=== PATIENT | female | born 1950 | race Caucasian/White ===

== ENCOUNTER → 2017-03-22 | Outpatient (CLI) | payer MEDICARE ==
--- NOTE | 2017-03-22 17:23 | KCIC ---
Bilateral digital screening mammograms with CAD: HISTORY Routine screening. COMPARISON Comparison is made to previous studies dated back to 02/24/2014. FINDINGS Breast density category B. The skin and nipples show no abnormalities. No abnormal lymph nodes are seen in the axilla. The breast parenchyma shows scattered fibroglandular density. There are patchy asymmetries which are unchanged. There are no new dominant masses, suspicious calcifications or architectural distortions. IMPRESSION No evidence of malignancy. Recommend routine annual mammographic screening. This study was interpreted with the benefit of Computerized Aided Detection (CAD). Mammography is not 100% sensitive in detecting breast cancer. Therefore, a self breast exam and a clinical breast exam are very important. A negative mammogram does not negate a clinically suspicious finding and should not result in a delay in biopsying a clinically suspicious abnormality. BI-RADS category 2: Benign. This patient's information has been entered into a reminder system for the patient to be notified with the results of this examination and a target date for her next mammograms. Electronically signed by: Jacklyn Pride MD (March 22, 2017 17:21:46)
== END | disposition home or self-care (01) ==
LOC: KCIC MAMMO 12:07
PROVIDERS: ATTEND Obstetrics & Gynecology
DX: Z12.31 Encounter for screening mammogram for malignant neoplasm of breast (principal)
CPT/HCPCS: G0202; 77067

== ENCOUNTER → 2017-12-22 | Outpatient (CLI) | payer MEDICARE ==
[2017-12-22] MEDS: IOHEXOL 300 MG/ML 100ML VIAL. IV ×2 (10:27)
[2017-12-22] MEDS: IOHEXOL 240 MG/ML 50ML VIAL. PO ×2 (10:27)
[2017-12-22 10:31] LABS: ISTAT CREATININE 1.2 mg/dL (0.6-1.1)
== END | disposition home or self-care (01) ==
LOC: KCIC CT 08:58
DX: M43.16 Spondylolisthesis, lumbar region (principal); M51.36 Other intervertebral disc degeneration, lumbar region
CPT/HCPCS: 74177; 82565; Q9966; Q9967

== ENCOUNTER → 2018-02-08 | Outpatient (CLI) | payer MEDICARE | END | disposition home or self-care (01) | LOC: KCIC MRI 14:18 | DX: M51.34 Other intervertebral disc degeneration, thoracic region (principal); M48.061 Spinal stenosis, lumbar region without neurogenic claudication; M51.16 Intervertebral disc disorders with radiculopathy, lumbar region; M47.896 Other spondylosis, lumbar region; M25.78 Osteophyte, vertebrae; M50.30 Other cervical disc degeneration, unspecified cervical region | CPT/HCPCS: 72146; 72148 ==

== ENCOUNTER → 2018-03-23 | Outpatient (CLI) | payer MEDICARE | END | disposition home or self-care (01) | LOC: KCIC MAMMO 08:33 | DX: Z12.31 Encounter for screening mammogram for malignant neoplasm of breast (principal); R92.1 Mammographic calcification found on diagnostic imaging of breast | CPT/HCPCS: 77063; 77067 ==

== ENCOUNTER → 2019-03-28 | Outpatient (CLI) | payer MEDICARE ==
[~2019-03-28] MED LIST: METF500T16 PO; SIMV10TA3 PO
--- NOTE | 2019-03-28 13:26 | KCIC ---
Bilateral digital screening mammograms with 3-D tomosynthesis: Reason for examination: Routine screening. Comparison is made to previous studies dated back to 02/27/2015. Bilateral mammograms in CC and oblique projections were obtained with 2-D imaging and 3-D tomosynthesis imaging on a Siemens Inspiration unit and reviewed on the workstation. Interpretation was made with the benefit of CAD. The skin and nipples show no abnormalities. No abnormal axillary lymph nodes are seen. The breast parenchyma shows scattered fatty and fibroglandular density. (Breast density: Category B.) There continues to be a small subtle nodular parenchymal density containing faint calcifications in the lower inner quadrant of the left breast which is unchanged. There are no new dominant masses, suspicious calcifications or architectural distortion. Impression: No evidence of malignancy. Recommend routine screening. BI-RAD Category 2: Benign. "Our facility is accredited by the [employer] Mammography Program." This patient's information has been entered into a reminder system for the patient to be notified with the results of her examination and a target date for the next mammogram. Electronically signed by: Nini Pride MD (03/28/2019 1:23 PM) [id number]
== END ==
LOC: KCIC MAMMO 11:57
PROVIDERS: ATTEND Obstetrics & Gynecology
DX: Z12.31 Encounter for screening mammogram for malignant neoplasm of breast (principal); N64.89 Other specified disorders of breast
CPT/HCPCS: 77063; 77067

== ENCOUNTER → 2019-07-11 | Outpatient (CLI) | payer MEDICARE ==
--- NOTE | 2019-07-11 10:05 | KCIC ---
LUMBAR SPINE WO CONTRAST History: Low back pain. Bilateral lower extremity radiculopathy. Technique: Multiplanar, multi sequential MR imaging was performed of the lumbar spine. Comparison: February 08, 2018 Findings: Increased degenerative endplate edema L5-S1. No pathologic marrow replacing process. Grade 1 anterolisthesis L4 on L5, unchanged. Minimal retrolisthesis L3 on L4, unchanged. Normal vertebral body height. No fracture. Sacral Tarlov cyst. Conus terminates at the normal location. No evidence of nerve root clumping. L1-L2: Small posterior disc bulge. Mild facet arthropathy. No canal narrowing. Mild right neuroforaminal narrowing. No left neural foraminal narrowing. L2-L3: Small posterior disc bulge. Moderate facet arthropathy. Left subarticular recess narrowing, unchanged. No canal narrowing. Moderate left and mild right neuroforaminal narrowing. L3-L4: Broad-based posterior disc bulge. Advanced facet arthropathy. Bilateral subarticular recess narrowing. Mild canal narrowing. Moderate left and mild right neuroforaminal narrowing. L4-L5: Anterolisthesis. Advanced facet arthropathy. Severe canal narrowing with nerve root compression. Mild left and moderate to severe right L5-S1: Broad-based posterior disc bulge. Advanced facet arthropathy. Bilateral subarticular recess narrowing with abutment of the descending S1 nerve roots. No canal narrowing. And moderate to severe bilateral neural foraminal narrowing. When compared the prior examination the degenerative findings and narrowing are similar. Impression: 1. Advanced multilevel lumbar spondylosis with increased degenerative endplate edema L5-S1. 2. L4-L5 grade 1 anterolisthesis advanced facet arthropathy contributing to severe canal narrowing, unchanged. 3. Multilevel neural foraminal narrowing most prominent L4-L5 and L5-S1, unchanged. Electronically signed by: Milton Estrada DO (07/11/2019 10:02 AM) [facility]
== END | disposition home or self-care (01) ==
LOC: KCIC MRI 08:27
PROVIDERS: ATTEND Internal Medicine
DX: M47.896 Other spondylosis, lumbar region (principal); M12.88 Other specific arthropathies, not elsewhere classified, other specified site; M48.061 Spinal stenosis, lumbar region without neurogenic claudication; M48.07 Spinal stenosis, lumbosacral region
CPT/HCPCS: 72148

== ENCOUNTER → 2019-08-09 | Outpatient (CLI) | payer MEDICARE ==
[~2019-08-09] MED LIST changes: +CALC625T12 PO; +CICL15CR2 TP; +CRESTOR20 MG PO; +IBUP-1027 PO; +LISI-338 PO; +LORA0.5T96 PO; +MELA3TAB56 PO; +SIMV10TA15 PO; -SIMV10TA3 PO
--- NOTE | 2019-08-09 13:43 | KCIC ---
EXAM: Lumbar spine, 3 views. HISTORY: Pain. COMPARISON: 07/11/2019 FINDINGS: Lateral neutral, flexion and extension views of the lumbar spine are obtained. There is degenerative endplate remodeling with disc space narrowing and osteophytosis primarily at L1-L2 and L2-L3. There is facet arthropathy predominantly the lower lumbar levels. There is grade 1 anterolisthesis of L4 and L5 with flexion, measuring 6 mm. There is 3 mm retrolisthesis of L3 on L4 with flexion. This does not significantly change with extension. There is a hip arthroplasty. IMPRESSION: 1. Grade 1 anterolisthesis of L4 and L5 and slight listhesis of L3 on L4 on flexion and extension. 2. Multilevel degenerative change, primarily at L1-L2, L2-L3 and L5-S1. Electronically signed by: Tamara Ngo MD (08/09/2019 1:40 PM) [facility]
== END | disposition home or self-care (01) ==
LOC: KCIC 09:35
PROVIDERS: ATTEND Neurological Surgery
DX: M47.816 Spondylosis without myelopathy or radiculopathy, lumbar region (principal); M47.817 Spondylosis without myelopathy or radiculopathy, lumbosacral region; M12.88 Other specific arthropathies, not elsewhere classified, other specified site
CPT/HCPCS: 72100

== ENCOUNTER → 2019-08-22 | Outpatient (CLI) | payer MEDICARE ==
[~2019-08-22] MED LIST changes: +IOHEXOL 180 MG/ML 10 ML VIAL. ONE; -SIMV10TA15 PO; +SIMV10TA3 PO; +methylPREDNISolone ACETATE 40 MG/ML VIAL. ONE; +methylPREDNISolone ACETATE 80 MG/ML VIAL. ONE
--- NOTE | 2019-08-22 20:50 | PAIN ---
DATE OF SERVICE: 08/22/2019 INITIAL CONSULTATION FOR PAIN CLINIC CHIEF COMPLAINT: Low back and bilateral lower extremity pain. HISTORY OF PRESENT ILLNESS: This is a 68-year-old female who presents with history of pain in the low back, bilateral lower extremities, mostly in the posterior gluteus, posterior thigh and posterior calf bilaterally for about the past 2 years. The patient reports that it is beginning to affect her daily activities and she sought some relief for it. The patient has seen her neurosurgeon who is not recommending any surgical intervention at this time and to try conservative therapy, the patient is doing physical therapy and has done it since 2018 and still doing the exercises and stretches at home. The patient reports she has tried ibuprofen, which does help decrease the pain, but only about 40%. The patient reports the pain is worse with walking, standing, changing positions, getting up from a seated position. The patient reports it does not awaken her from sleep at night, better with sitting or lying down. It does not affect her bowel or bladder control, but does affect her ability to walk with significant fatigability in the bilateral lower extremities. Also driving a car for prolonged period, her right leg becomes ____ and more fatigued. The patient reports the pain is constant, sharp, stabbing across the back radiating and shooting into the posterior gluteus, posterior thighs, worse with activity. The patient rates her disability rating from 0-10, 10 being the worst, is a 6 with family home responsibilities, 8 with recreation, 9 with social activity and 0 with self-care and life support activities. The patient did have MRI scan of the lumbar spine showing some significant narrowing at the L5-S1 as well as the L4-L5 distribution with severe canal narrowing and nerve root compression. Mild left and [id number] right, L5-S1 shows advanced facet arthropathy, bilateral subarticular recess narrowing and abutment of the descending S1 nerve roots with no canal narrowing and [id number] bilateral neural foraminal narrowing. The patient reports no complete loss of function, but significant fatigability in the lower extremities with activity. PAST MEDICAL HISTORY: Significant for type 2 diabetes, hypertension and arthritis. PREVIOUS SURGERY: Include tonsillectomy, abdominal laparoscopy, appendectomy, tubal ligation, bilateral bunionectomy, carpal tunnel repair and cataract extractions. CURRENT MEDICATIONS: Include metformin, calcium, melatonin, Crestor, ibuprofen, Ativan, lisinopril and ciclopirox cream. ALLERGIES: THE PATIENT IS ALLERGIC TO PENICILLIN AND CODEINE. FAMILY HISTORY: Significant for colon cancer and diabetes. SOCIAL HISTORY: The patient does not drink alcohol, but just rarely. Does not smoke. Denies any illegal, illicit or recreational drugs. She is , lives with her spouse, lives locally in [place], [place]. Reports she is currently retired. REVIEW OF SYSTEMS: The patient's review of systems is positive for those items mentioned in history of present illness. All systems reviewed and otherwise negative. It is complete, full and well documented on the patient's chart. PHYSICAL EXAMINATION: VITAL SIGNS: The patient's blood pressure is 142/74, pulse is 73, respirations 18, temperature 98.0 degrees Fahrenheit, height is 5 feet 5 inches, weighs 135. GENERAL: The patient is awake, alert, oriented, appropriate, very pleasant demeanor. HEENT: Shows normocephalic, atraumatic. Extraocular movements are intact and symmetrical. Oral cavity: Mucous membranes moist and pink. Dentition is intact. NECK: Shows anterior throat supple without palpable lymphadenopathy noted. Swallow reflex symmetrical. CHEST: Shows normal on inspection. Breath sounds clear to auscultation bilaterally. HEART: Shows S1, S2 clear. No murmurs auscultated. ABDOMEN: Soft, nontender, nondistended. No palpable organomegaly is noted. No rebound or guarding demonstrated. BACK: Shows spine grossly in the midline. Normal-appearing thoracic kyphosis and minor flattening of lumbar lordotic curvature. Lumbar paraspinous muscle shows symmetrical on inspection and palpation shows some [id number] tenderness throughout the upper, middle and lower distribution of paraspinous muscles, but is symmetrical without evidence of atrophy or hypertrophy. The patient shows no tenderness with palpation over the spinous processes, sacrum or sacroiliac regions. The patient has good rotational motion of lumbar spine, both laterally greater than 10 degrees right and left as well as extension greater than 10 degrees, forward flexion 45 degrees without significant discomfort. EXTREMITIES: The patient's lower extremities show deep tendon reflexes at 2+ in the patellar, 1+ tendo-calcaneus tendons. Motor exam is strong with 5/5 dorsiflexion, extension, quadriceps and hamstring flexion and symmetrical without exacerbating the pain with these maneuvers. The patient's lower extremities are warm and dry to touch, equal in color and appearance. Straight leg raise noted to be negative bilaterally. Gaenslen's and Nguyễn's maneuvers are negative bilaterally as well. Peripheral pulses are 1+ posterior tibia. No peripheral edema is noted bilaterally. The patient is able to stand, stand on her toes without significant difficulty or loss of balance, walks with a normal appearing gait for short distance in the office, not using any assistive devices to ambulate. SKIN: Shows warm and dry, good turgor. No edema. No sores, rashes or bruising. IMPRESSION: 1. This is a 68-year-old female with a 2-year history of increasing pain, low back, bilateral lower extremities in a radicular fashion. 2. MRI scan of lumbar spine as noted. 3. Type 2 diabetes. 4. Hypertension. 5. Arthritis. PLAN: Options were discussed with the patient including conservative medical management, physical therapies and interventional techniques. She is doing physical therapy exercises already. She would like to pursue interventional techniques. We discussed a lumbar epidural steroid injection using description as well as anatomical models to describe the procedure. Risks were then discussed including, but not limited to bleeding, infection, possibility of epidural hematoma, subsequent neurological compromise, dural puncture, headaches, spinal cord and/or nerve damage, side effects of steroid medication and poor results regarding pain control. The patient understands and wished to proceed. The patient will return to the clinic in approximately 2 weeks for followup. She was counseled as to return appointment, activity level and side effects to be aware of. DIAGNOSES: Lumbar radiculopathy with lumbar degenerative disk disease, lumbar spinal stenosis and spondylosis. PROCEDURE: Lumbar epidural steroid injection, translaminar approach L5-S1 level using C-arm fluoroscopic guidance under sterile prep and drape using local anesthetic. MEDICATION INJECTED: The patient received a total of 120 mg Depo-Medrol plus 10 mL of preservative-free normal saline and 2 mL of contrast. CONDITION AT DISCHARGE: Stable. The patient tolerated procedure well, had no complications. RUKHSANA COLIN MD DR: TYRONE/farzad JOB#: [id number] / [id number]
== END ==
LOC: PNCL 09:21
PROVIDERS: ATTEND Anesthesiology
DX: M51.16 Intervertebral disc disorders with radiculopathy, lumbar region (principal); M47.816 Spondylosis without myelopathy or radiculopathy, lumbar region; E11.9 Type 2 diabetes mellitus without complications; I10 Essential (primary) hypertension; Z87.39 Personal history of other diseases of the musculoskeletal system and connective tissue; Z98.890 Other specified postprocedural states; Z98.51 Tubal ligation status; Z98.42 Cataract extraction status, left eye; Z98.41 Cataract extraction status, right eye; Z88.5 Allergy status to narcotic agent; Z88.0 Allergy status to penicillin; Z96.1 Presence of intraocular lens; Z79.84 Long term (current) use of oral hypoglycemic drugs
CPT/HCPCS: 62323; J1030; J1040; Q9965

== ENCOUNTER → 2019-09-05 | Outpatient (CLI) | payer MEDICARE ==
[~2019-09-05] MED LIST changes: +SIMV10TA15 PO; -SIMV10TA3 PO
--- NOTE | 2019-09-05 10:59 | PAIN ---
DATE OF SERVICE: 09/05/2019 PROGRESS NOTE FOR PAIN CLINIC DIAGNOSIS: Lumbar radiculopathy with lumbar degenerative disk disease and lumbar spondylosis. HISTORY OF PRESENT ILLNESS: The patient is a 69-year-old female who returns for followup status post lumbar epidural steroid injection x 1. The patient reports 95% improvement in the low back and bilateral lower extremity pain. The patient reports some minor pain in the right side of the low back and hip, but only minimal with walking, although it is becoming more noticeable over the past 2-3 days. The patient reports the pain is 2 on a scale of 10 at its worst, 2 on average, 0 at its least and is 0 today. The patient reports it is dull, aching, in the low back on the right side and some into the right lower extremity, mostly just on the right side. The patient reports it is better with sitting or lying down. She has been increasing her activity, distance walking, doing work activities, household activities, traveling with greater ease and comfort, sleeping better without pain disturbing her from sleep at night. She sleeps about 8 hours at a time without disturbance from the pain. The patient reports no new motor or sensory deficits, no new bowel or bladder incontinence or other complaints. PHYSICAL EXAMINATION: VITAL SIGNS: The patient's blood pressure is 118/66, pulse 76, respirations 18, temperature 98.3 degrees Fahrenheit, height is 5 feet 5 inches, weight is 130 pounds. GENERAL: The patient is awake, alert, oriented, appropriate, very pleasant demeanor. HEENT: Head shows normocephalic, atraumatic. Extraocular movements are intact and symmetrical. Oral cavity: Mucous membranes are moist and pink. Dentition is intact. NECK: Shows anterior throat supple without palpable lymphadenopathy noted. Swallow reflex symmetrical. CHEST: Shows normal on inspection. Breath sounds clear to auscultation bilaterally. HEART: Shows S1, S2 clear. No murmurs auscultated. ABDOMEN: Soft, nontender, nondistended. No palpable organomegaly is noted. BACK: Shows spine grossly in the midline. Normal appearing thoracic kyphosis and minor flattening of lumbar lordotic curvature. Lumbar paraspinous muscle shows symmetrical on inspection and palpation shows some mild tenderness in the lower lumbar distribution only without radiation and is symmetrical. The patient has full rotational motion of the lumbar spine laterally as well as extension and flexion without difficulty. EXTREMITIES: Lower extremities show deep tendon reflexes 2+ in the patella, 1+ in tendocalcaneus tendons. Motor exam is strong with 5/5 dorsiflexion and extension. Options were discussed with the patient. The patient's old chart was reviewed as her current medication regimen updated. Current review of systems updated today as well. We will proceed with a second in the series lumbar epidural steroid injection today with fluoroscopic guidance. Risks were again discussed including, but not limited to bleeding, infection, possibility of epidural hematoma, subsequent neurological compromise, dural puncture, headaches, spinal cord and/or nerve damage, side effects of steroid medication and poor results regarding pain control. The patient understands and wished to proceed. The patient will return to clinic in approximately 2 weeks for followup. She was counseled on return appointment, activity level and side effects to be aware of. DIAGNOSIS: Lumbar radiculopathy with lumbar degenerative disk disease and lumbar spondylosis. PROCEDURE: Lumbar epidural steroid injection, translaminar approach at L5-S1 level using C-arm fluoroscopic guidance under sterile prep and drape using local anesthetic. MEDICATION INJECTED: A total of 120 mg Depo-Medrol plus 10 mL of preservative free normal saline and 2 mL of contrast. CONDITION AT DISCHARGE: Stable. The patient tolerated the procedure well and had no complications. RUKHSANA COLIN MD DR: TYRONE/farzad JOB#: [id number] / [id number]
== END ==
LOC: PNCL 08:19
PROVIDERS: ATTEND Anesthesiology
DX: M51.16 Intervertebral disc disorders with radiculopathy, lumbar region (principal); M47.816 Spondylosis without myelopathy or radiculopathy, lumbar region
CPT/HCPCS: 62323; J1030; J1040; Q9965

== ENCOUNTER → 2019-11-13 | Outpatient (CLI) | payer MEDICARE ==
[~2019-11-13] MED LIST changes: +GLIM4TAB8 PO
--- NOTE | 2019-11-13 11:45 | PAIN ---
DATE OF SERVICE: 11/13/2019 PROGRESS NOTE FOR PAIN CLINIC DIAGNOSES: Lumbar radiculopathy with lumbar degenerative disk disease and lumbar spondylosis. HISTORY OF PRESENT ILLNESS: The patient is a 69-year-old female who returns for followup status post lumbar epidural steroid injection x 2, most recently on 09/08/2019. The patient did very well with this, reports about 95% improvement, which is now returning with still pain only on the right side. The patient reports her left side is completely pain free as well as the pain across the low back is somewhat moderate, but the pain in the right side is most problematic with pain radiating to posterior gluteus, posterior thigh on the right, rated as 8 on a scale of 10 at its worst, 8 on average, 1 at its least and is a 1 today. The patient reports it is aching and radiating, worse with walking, standing, changing positions, better with sitting or resting. The patient reports she has increased her distance walking after last injection, doing work activities, household activities, traveling with greater ease and comfort as well. The patient reports no new motor or sensory deficits, no new bowel or bladder incontinence. PHYSICAL EXAMINATION: VITAL SIGNS: The patient's blood pressure 138/75, pulse 83, respirations 16, temperature is 98.1 degrees Fahrenheit, height is 5 feet 5 inches, weight is 132 pounds. GENERAL: The patient is awake, alert, oriented, appropriate, very pleasant demeanor. HEENT: Shows normocephalic, atraumatic. Extraocular movements are intact and symmetrical. Oral cavity: Mucous membranes moist and pink. Dentition is intact. NECK: Shows anterior throat supple without palpable lymphadenopathy noted. Swallow reflex symmetrical. CHEST: Shows normal on inspection. Breath sounds clear to auscultation bilaterally. HEART: Shows S1, S2 clear. No murmurs auscultated. ABDOMEN: Soft, nontender, nondistended. BACK: Shows spine grossly in the midline. Normal appearing thoracic kyphosis and some minor flattening of lumbar lordotic curvature. Lumbar paraspinous muscle shows symmetrical on inspection, on palpation shows some moderate tenderness diffusely bilaterally going diffusely without significant radiation. EXTREMITIES: The patient's lower extremities show deep tendon reflexes 2+ in the patellar, 1+ tendo-calcaneus tendons. Motor exam is strong with 5/5 dorsiflexion, extension, quadriceps and hamstring flexion symmetrical. Peripheral pulses are 1+. No peripheral edema is noted bilaterally. Options were discussed with the patient. The patient's old chart was reviewed as her current medication regimen updated. Current review of systems updated today as well. We will proceed with a lumbar epidural steroid injection, a third in the series today. Risks were again discussed including, but not limited to bleeding, infection, possibility of epidural hematoma, subsequent neurological compromise, dural puncture, headaches, spinal cord and/or nerve damage, side effects of steroid medication and poor results regarding pain control. The patient understands and wished to proceed. The patient will return to clinic in approximately 2 weeks for followup. She was counseled on return appointment, activity level and side effects to be aware of. DIAGNOSES: Lumbar radiculopathy with lumbar degenerative disk disease and lumbar spondylosis. PROCEDURE: Lumbar epidural steroid injection, translaminar approach at the L5-S1 level using C-arm fluoroscopic guidance under sterile prep and drape using local anesthetic. MEDICATION INJECTED: A total of 120 mg Depo-Medrol plus 10 mL of preservative-free normal saline and 2 mL of contrast. CONDITION AT DISCHARGE: Stable. The patient tolerated the procedure well, had no complications. RUKHSANA COLIN MD DR: TYRONE/farzad JOB#: [id number] / [id number]
== END ==
LOC: PNCL 09:11
PROVIDERS: ATTEND Anesthesiology
DX: M51.16 Intervertebral disc disorders with radiculopathy, lumbar region (principal); M47.816 Spondylosis without myelopathy or radiculopathy, lumbar region
CPT/HCPCS: 62323; J1030; J1040; Q9965

== ENCOUNTER → 2020-04-16 | Outpatient (CLI) | payer MEDICARE ==
[~2020-04-16] MED LIST changes: -IOHEXOL 180 MG/ML 10 ML VIAL. ONE; +MELA3TAB4 PO; -MELA3TAB56 PO; -methylPREDNISolone ACETATE 40 MG/ML VIAL. ONE; -methylPREDNISolone ACETATE 80 MG/ML VIAL. ONE
--- NOTE | 2020-04-16 09:56 | KCIC ---
Bilateral digital screening mammograms with 3-D tomosynthesis: Reason for examination: Routine screening. Comparison is made to previous studies dated back to 03/22/2016. Bilateral mammograms in CC and oblique projections were obtained with 2-D imaging and 3-D tomosynthesis imaging on a Siemens Inspiration unit and reviewed on the workstation. Interpretation was made with the benefit of CAD. The skin and nipples show no abnormalities. No abnormal axillary lymph nodes are seen. The breast parenchyma shows scattered fatty and fibroglandular density. (Breast density: Category B.) There continued be small nodular parenchymal densities at the 12:00 position of the left breast which are stable. There are no new dominant masses, suspicious calcifications or architectural distortion. Impression: No evidence of malignancy. Recommend routine screening. BI-RAD Category 2: Benign. "Our facility is accredited by the [employer] Mammography Program." This patient's information has been entered into a reminder system for the patient to be notified with the results of her examination and a target date for the next mammogram. Electronically signed by: Nini Pride MD (04/16/2020 9:53 AM) [email or web address]
== END ==
LOC: KCIC MAMMO 08:13
PROVIDERS: ATTEND Obstetrics & Gynecology
DX: Z12.31 Encounter for screening mammogram for malignant neoplasm of breast (principal)
CPT/HCPCS: 77063; 77067

== ENCOUNTER → 2020-04-28 | Outpatient (CLI) | payer MEDICARE ==
[~2020-04-28] MED LIST changes: +ASPI-630 PO; +IOHEXOL 180 MG/ML 10 ML VIAL. ONE; +methylPREDNISolone ACETATE 40 MG/ML VIAL. ONE; +methylPREDNISolone ACETATE 80 MG/ML VIAL. ONE
--- NOTE | 2020-04-28 10:36 | PAIN ---
DATE OF SERVICE: 04/28/2020 PROGRESS NOTE FOR PAIN CLINIC DIAGNOSES: Lumbar radiculopathy with lumbar degenerative disk disease and lumbar spondylosis. HISTORY OF PRESENT ILLNESS: The patient is a 69-year-old female who returns for followup status post lumbar epidural steroid injections with very good results, last seen 11/13/2019, patient did very well with about a 75% improvement for several months after the injection. The patient reports now the pain is returning in the low back and right greater than left lower extremity in the posterior gluteus, posterior thighs, worse with walking, standing, changing positions, better with resting or sitting or lying down, generally does not awaken her from sleep at night. The patient reports it is aching type pain and that the right leg feels weak and fatigued easily, but has not given out on her completely without any motor loss. The patient reports the pain is becoming more constant. The patient reports the pain is a 10 on a scale of 10 at its worst in the past week, 8 on average, 5 at its least and is a 5 today. The patient reports no new motor or sensory deficits, no new bowel or bladder incontinence or other complaints. PHYSICAL EXAMINATION: VITAL SIGNS: The patient's blood pressure is 124/74, pulse 76, respirations 16, temperature is 98.1 degrees Fahrenheit, weight is 135 pounds. GENERAL: The patient is awake, alert, oriented, appropriate, very pleasant demeanor. HEENT: Shows normocephalic, atraumatic. Extraocular movements are intact and symmetrical. Oral cavity: Mucous membranes moist and pink. Dentition is intact. NECK: Shows anterior throat supple without palpable lymphadenopathy noted. Swallow reflex symmetrical. CHEST: Shows normal on inspection. Breath sounds are clear bilaterally. HEART: Shows S1, S2 clear. No murmurs auscultated. ABDOMEN: Soft, nontender, nondistended. No palpable organomegaly is noted. No rebound or guarding demonstrated. BACK: Shows spine grossly in the midline. Normal appearing thoracic kyphosis and minor flattening of lumbar lordotic curvature. Lumbar paraspinous muscle shows symmetrical on inspection, on palpation shows some moderate tenderness diffusely bilaterally, but only diffusely without significant radiation. The patient has good rotational motion of lumbar spine, both laterally as well as extension and flexion without significant increase in pain. EXTREMITIES: Lower extremities show deep tendon reflexes at 2+ in the patellar, 1+ tendo-calcaneus tendons. Motor exam is strong with 5/5 dorsiflexion, extension, quadriceps and hamstring flexion symmetrical. Peripheral pulses are 1+. No peripheral edema is noted bilaterally. Options were discussed with the patient. The patient's old chart was reviewed as her current medication regimen updated. Current review of systems updated today as well and we will proceed with lumbar epidural steroid injections, the first in this series with fluoroscopic guidance. Risks were discussed including but not limited to bleeding, infection, possibility of epidural hematoma, subsequent neurologic compromise, dural puncture, headaches, spinal cord and/or nerve damage, side effects of steroid medication and poor results regarding pain control. The patient understands and wished to proceed. The patient will return to the clinic in approximately 2 weeks for followup. She was counseled on return appointment, activity level and side effects to be aware of. DIAGNOSES: Lumbar radiculopathy with lumbar degenerative disk disease and lumbar spondylosis. PROCEDURE: Lumbar epidural steroid injection, translaminar approach at L5-S1 level using C-arm fluoroscopic guidance under sterile prep and drape using local anesthetic. MEDICATION INJECTED: A total of 120 mg Depo-Medrol plus 10 mL of preservative-free normal saline and 2 mL of contrast. CONDITION AT DISCHARGE: Stable. The patient tolerated procedure well, had no complications. RUKHSANA COLIN MD DR: TYRONE/farzad JOB#: [id number] / [id number]
== END ==
LOC: PNCL 08:20
PROVIDERS: ATTEND Anesthesiology
DX: M51.16 Intervertebral disc disorders with radiculopathy, lumbar region (principal); M47.816 Spondylosis without myelopathy or radiculopathy, lumbar region
CPT/HCPCS: 62323; J1030; J1040; Q9965

== ENCOUNTER → 2020-05-12 | Outpatient (CLI) | payer MEDICARE ==
--- NOTE | 2020-05-12 09:41 | PAIN ---
DATE OF SERVICE: 05/12/2020 PROGRESS NOTE FOR PAIN CLINIC DIAGNOSIS: Lumbar radiculopathy with lumbar degenerative disk disease, and lumbar spondylosis. HISTORY OF PRESENT ILLNESS: The patient is a 69-year-old female who returns for followup status post lumbar epidural steroid injection x 1. The patient reports about 90% improvement for the first 2 weeks, the pain is currently returning in the low back and bilateral lower extremities, posterior gluteus, posterior thigh, more on the right than the left, but present bilaterally to some extent. The patient reports she has increased her activity, walking, doing household activities, traveling with greater ease and comfort, much better with sitting or lying down, does not awaken her from sleep at night. The patient rates the pain as a 4 on a scale of 10 at its worst over the past week, 2 on average, 2 at its least and is a 2 today. The patient reports it is dull, also tight at times in the low back itself, again worse on the right leg in the posterior gluteus and thigh as well as the calf, but worse with walking, standing, better with sitting or lying down. The patient reports no new motor or sensory deficits, no new bowel or bladder incontinence quite pleased with her progress thus far. PHYSICAL EXAMINATION: VITAL SIGNS: The patient's blood pressure 134/61, pulse 74, respirations 16, temperature 98.0 degrees Fahrenheit, height is 5 feet 5 inches, weighs 132 pounds. GENERAL: The patient is awake, alert, oriented, appropriate, very pleasant demeanor. HEENT: Shows normocephalic, atraumatic. Extraocular movements are intact and symmetrical. Oral cavity: Mucous membranes moist and pink. Dentition is intact. NECK: Shows anterior throat supple without palpable lymphadenopathy noted. Swallow reflex symmetrical. CHEST: Shows normal on inspection. Breath sounds are clear to auscultation bilaterally. HEART: Shows S1, S2 clear. No murmurs auscultated. ABDOMEN: Soft, nontender, nondistended. No palpable organomegaly is noted. No rebound or guarding demonstrated. BACK: Shows spine grossly in the midline. No significant pain with even deep palpation in the lower and middle paraspinous musculature. The patient has good rotational motion of lumbar spine, both laterally as well as extension and flexion without significant difficulty. The patient's back shows good rotational motion laterally as well as extension and flexion without significant increase in pain. EXTREMITIES: Lower extremities show deep tendon reflexes at 2+ in the patellar and tendo calcaneus tendons are 1+ bilaterally. Motor exam is strong with 5/5 dorsiflexion, extension, quadriceps and hamstring flexion and symmetrical. Peripheral pulses are 1+. No peripheral edema bilaterally. Options were discussed with the patient. The patient's old chart was reviewed as his current medication regimen updated. Current review of systems updated today as well. We will proceed with a second in a series of lumbar epidural steroid injection today with fluoroscopic guidance. Risks were discussed including but not limited to bleeding, infection, possibility of epidural hematoma, subsequent neurological compromise, dural puncture, headaches, spinal cord and/or nerve damage, side effects of steroid medication and poor results regarding pain control. The patient understands and wished to proceed. The patient will return to clinic in approximately 2 weeks for followup, was counseled on return appointment, activity level and side effects to be aware of. DIAGNOSES: Lumbar radiculopathy with lumbar degenerative disk disease and lumbar spondylosis. PROCEDURE: Lumbar epidural steroid injection, translaminar approach L5-S1 level using C-arm fluoroscopic guidance under sterile prep and drape using local anesthetic. MEDICATION INJECTED: A total of 120 mg Depo-Medrol plus 10 mL preservative-free normal saline and 2 mL of contrast. CONDITION AT DISCHARGE: Stable. The patient tolerated procedure well, had no complications. RUKHSANA COLIN MD DR: TYRONE/farzad JOB#: [id number] / [id number]
== END ==
LOC: PNCL 08:38
PROVIDERS: ATTEND Anesthesiology
DX: M51.16 Intervertebral disc disorders with radiculopathy, lumbar region (principal); M47.816 Spondylosis without myelopathy or radiculopathy, lumbar region
CPT/HCPCS: 62323; J1030; J1040; Q9965

== ENCOUNTER → 2020-09-25 | Outpatient (CLI) | payer MEDICARE ==
--- NOTE | 2020-09-25 10:28 | PDOC ---
Progress Note - Pain Clinic Date of Service: DOS: DATE: 09/25/20 TIME: 10:25 Diagnosis: Dx: Lumbar radiculopathy with lumbar degenerative disc disease and lumbar spondylosis History or Present Illness: HPI: 70-year-old female returns follow-up status post lumbar epidural steroid action x2. Last seen May 12, 2020 patient did very well with about 80% improvement initially now about 40% improvement overall in the low back and bilateral lower extremity worse on the right and left posterior gluteus posterior thigh posterior calf patient reports worse with walking standing changing positions although initially she did very initially with distance walking household activities traveling with greater ease and comfort. Patient reports it wakes her from sleep very rarely usually more noticeable with walking and standing better with sitting or laying down patient scribes pain is aching and radiating in the lower extremity as described. Patient reports no new motor or sensory deficits no new bowel bladder incontinence or other complaints. Physical Exam: VS: Blood pressure is 140/74 pulse 84 respirations 18 temperature 97.8 F height 5 feet 5 inches weight is 135 pounds PE: PHYSICAL EXAMINATION: GENERAL: The patient is awake, alert, oriented, appropriate, very pleasant demeanor HEENT: Shows normocephalic, atraumatic. Extraocular movements are intact and symmetrical. Oral cavity: Mucous membranes moist and pink. NECK: Shows anterior throat supple without palpable lymphadenopathy noted. Swallow reflex symmetrical. CHEST: Shows normal on inspection. Breath sounds are clear bilaterally, no rales rhonchi or wheezes. HEART: Shows S1, S2 clear. No murmurs auscultated. ABDOMEN: Soft, nontender, nondistended, obese. No palpable organomegaly is noted. No rebound or guarding demonstrated. BACK: Shows spine grossly in the midline. Normal-appearing cervical lordotic curvature. There is slightly increased thoracic kyphosis, some minor flattening of the lumbar lordotic curvature. Lumbar paraspinous muscles show symmetrical on inspection, on palpation shows some moderate tenderness diffusely throughout the upper, middle and lower distribution of the paraspinous muscles bilaterally without specific trigger points, without radiation of pain. The patient has good rotational motion of the lumbar spine, both laterally as well as extension and flexion without significant difficulty. No tenderness over the spinous processes, sacrum or sacroiliac regions. EXTREMITIES: Lower extremities show deep tendon reflexes 2+ in the patellar and tendo calcaneus tendons. Motor exam is 5 on a scale of 5 with right dorsiflexion, extension, quadriceps and hamstring flexion and 5/5 on the left. Peripheral pulses are 1+ posterior tibial. No peripheral edema is noted bilaterally. Lower extremities are warm and dry to touch, equal in color and appearance. SKIN: Shows warm and dry, good turgor. No edema. No sores, rashes or bruising throughout. Procedure: Procedure: Options were discussed with the patient. Patient chart was reviewed as her current medication regimen updated current review of systems updated today as well. We will proceed with a third in the series lumbar epidural steroid injection today with fluoroscopic guidance. Risks were discussed including but not limited to: Bleeding, infection, possibility of epidural hematoma and subsequent neurological compromise, dural puncture, headaches, spinal cord and/or nerve damage, side effects of steroid medication, and poor results regarding pain control. Patient understands wished to proceed. Patient return to the clinic in approximate 2 weeks for follow-up, was counseled as to return appointment activity level and side effects to be aware of. Medication Injected: Med Injected: Procedure is lumbar epidural steroid injection under local anesthetic using sterile prep and drape at the L5-S1 level using C-arm fluoroscopic guidance in both AP and lateral views medications injected is 120 mg Depo-Medrol + 10 mL preservative-free normal saline and 2 mL contrast- condition at discharge is stable patient tolerated procedure well had no complications. Condition at Discharge: Condition at Discharge: Condition at discharge is stable, patient tolerated procedure well and had no complications. RUKHSANA COLIN MD Sep 25, 2020 10:28
== END | disposition home or self-care (01) ==
LOC: PNCL 09:53
PROVIDERS: ATTEND Anesthesiology
DX: M51.16 Intervertebral disc disorders with radiculopathy, lumbar region (principal); M47.26 Other spondylosis with radiculopathy, lumbar region; Z79.82 Long term (current) use of aspirin; Z79.899 Other long term (current) drug therapy; Z98.890 Other specified postprocedural states; Z88.0 Allergy status to penicillin; Z88.5 Allergy status to narcotic agent
CPT/HCPCS: 62323; J1030; J1040; Q9965

== ENCOUNTER → 2021-02-03 | Outpatient (CLI) | payer MEDICARE ==
[~2021-02-03] MED LIST changes: +CARV6.253 PO; -LISI-338 PO; +LISI-517 PO; +LISI10TA16 PO
--- NOTE | 2021-02-03 10:17 | PDOC ---
Progress Note - Pain Clinic Date of Service: DOS: DATE: 02/03/21 TIME: 10:15 Diagnosis: Dx: Lumbar radiculopathy with lumbar degenerative disc disease and lumbar spondylosis History or Present Illness: HPI: 70-year-old female returns follow-up status post lumbar epidural steroid action x3 last seen September 25, 2020. Patient did very well with about 60% improvement for several months after the injection pain returning over the past few weeks in the low back especially in the right lower extremity posterior gluteus posterior thigh posterior calf some on the left as well in the same distribution but more on the right patient reports is worse with walking standing changing positions better with sitting or laying down does not awaken her from sleep at night patient reports pain is 8 on scale 10 is worse over the past week 8 on average and a 6 at its least and is a 6 today. Patient reports radiating constant aching and dull in the back with shooting pain which is radiating and tight in the right lower extremity. Patient reports no new motor or sensory deficits no new bowel or bladder incontinence or other complaints. Physical Exam: VS: Blood pressure is 118/50 pulse 71 respirations 18 temperature 98.5 F height is 5 feet 5 inches weight 132 pounds PE: PHYSICAL EXAMINATION: GENERAL: The patient is awake, alert, oriented, appropriate, very pleasant demeanor HEENT: Shows normocephalic, atraumatic. Extraocular movements are intact and symmetrical. Oral cavity: Mucous membranes moist and pink. Dentition is intact. NECK: Shows anterior throat supple without palpable lymphadenopathy noted. Swallow reflex symmetrical. CHEST: Shows normal on inspection. Breath sounds are clear bilaterally, no rales or rhonchi auscultated. HEART: Shows S1, S2 clear. No murmurs auscultated. ABDOMEN: Soft, nontender, nondistended, obese. No palpable organomegaly is noted. BACK: Shows spine grossly in the midline. Normal-appearing cervical lordotic curvature. There is slightly increased thoracic kyphosis, some minor flattening of the lumbar lordotic curvature. Lumbar paraspinous muscles show symmetrical on inspection, on palpation shows some moderate tenderness diffusely throughout the upper, middle and lower distribution of the paraspinous muscles, but without specific trigger points, without radiation of pain. The patient has good rotational motion of the lumbar spine, both laterally as well as extension and flexion without significant difficulty. No tenderness over the spinous processes, sacrum or sacroiliac regions. EXTREMITIES: Lower extremities show deep tendon reflexes 2+ in the patellar and tendo calcaneus tendons. Motor exam is 5 on a scale of 5 with right dorsiflexion, extension, quadriceps and hamstring flexion and 5/5 on the left. Peripheral pulses are 1+ posterior tibial. No peripheral edema is noted bilaterally. Lower extremities are warm and dry to touch, equal in color and appearance. SKIN: Shows warm and dry, good turgor. No edema. No sores, rashes or bruising throughout. Procedure: Procedure: Options were discussed with the patient. Patient chart reviews her current medication regimen updated current review of systems updated today as well. We will proceed with a lumbar epidural steroid traction as the first in the series today with fluoroscopic guidance. Risks were discussed including but not limited to: Bleeding, infection, possibility of epidural hematoma and subsequent neurological compromise, dural puncture, headaches, spinal cord and/or nerve damage, side effects of steroid medication, and poor results regarding pain control. Patient understands and wished to proceed. Patient return to clinic in approximate 2 weeks for follow-up, was counseled as return appointment, activity level, and side effects to be aware. Medication Injected: Med Injected: Procedure is lumbar epidural steroid injection under local anesthetic using sterile prep and drape at the L5-S1 level using C-arm fluoroscopic guidance in b oth AP and lateral views medications injected is 120 mg Depo-Medrol + 10 mL preservative-free normal saline and 2 mL contrast- condition at discharge is stable patient tolerated procedure well had no complications. Condition at Discharge: Condition at Discharge: Condition at discharge stable, patient alert the procedure well and had no complications. RUKHSANA COLIN MD Feb 03, 2021 10:17
--- NOTE | 2021-02-03 10:18 | PDOC4 ---
PROCEDURE Procedure Patient was consented for lumbar epidural steroid injection. Risks were dis cussed including but not limited to: Bleeding, infection, possibility of epidural hematoma and subsequent neurological compromise, dural puncture, headaches, spinal cord and/or nerve damage, side effects of steroid medication, and poor results regarding pain control. Patient understands and wished to proceed. Procedure is lumbar epidural steroid injection under local anesthetic using sterile prep and drape at the L5-S1 level using C-arm fluoroscopic guidance in both AP and lateral views medications injected is 120 mg Depo-Medrol + 10 mL preservative-free normal saline and 2 mL contrast- condition at discharge is stable patient tolerated procedure well had no complications. RUKHSANA COLIN MD Feb 03, 2021 10:18
== END | disposition home or self-care (01) ==
LOC: PNCL 09:17
PROVIDERS: ATTEND Anesthesiology
DX: M51.16 Intervertebral disc disorders with radiculopathy, lumbar region (principal); M47.26 Other spondylosis with radiculopathy, lumbar region; Z79.82 Long term (current) use of aspirin; Z79.84 Long term (current) use of oral hypoglycemic drugs; Z79.899 Other long term (current) drug therapy; Z98.890 Other specified postprocedural states; Z88.0 Allergy status to penicillin; Z88.5 Allergy status to narcotic agent
CPT/HCPCS: 62323; J1030; J1040; Q9965; 77002

== ENCOUNTER → 2021-03-31 | Outpatient (CLI) | payer MEDICARE ==
--- NOTE | 2021-03-31 09:05 | PDOC4 ---
PROCEDURE Procedure Patient was consented for lumbar epidural steroid injection. Risks were dis cussed including but not limited to: Bleeding, infection, possibility of epidural hematoma and subsequent neurological compromise, dural puncture, headaches, spinal cord and/or nerve damage, side effects of steroid medication, and poor results regarding pain control. Patient understands and wished to proceed. Procedure is lumbar epidural steroid injection under local anesthetic using sterile prep and drape at the L5 S1 level using C-arm fluoroscopic guidance in both AP and lateral views medications injected is 120 mg Depo-Medrol +10mL preservative-free normal saline and 2 mL contrast- condition at discharge is stable patient tolerated procedure well had no complications. RUKHSANA COLIN MD March 31, 2021 09:05
--- NOTE | 2021-03-31 09:05 | PDOC ---
Progress Note - Pain Clinic Date of Service: DOS: DATE: 03/31/21 TIME: 09:02 Diagnosis: Dx: Lumbar radiculopathy with lumbar degenerative disc disease and lumbar spondylosis History or Present Illness: HPI: 70-year-old female returns for follow-up status post lumbar epidural steroid injection x1. Patient was found 90% improvement for about 2 months in the low back and the right lower extremity patient reports the pain is returning gradually but not back to baseline patient reports in the low back bilateral lower extremities more on the right than the left posterior gluteus posterior thigh posterior calf patient reports is an 8 on scale 10 is worse over the past week 6 on average, 4 to sleep scale is a 5 today. Patient reports is constant aching in the low back radiating the lower extremities again worse on the right than the left. Patient reports no new motor or sensory deficits no new bowel or bladder incontinence patient reports better with sitting or laying down generally does not awaken her from sleep. Physical Exam: VS: Blood pressure is 143/77 pulse 71 respirations 16 temperature 98.1 F 5 feet 5 inches weight is 132 pounds PE: PHYSICAL EXAMINATION: GENERAL: The patient is awake, alert, oriented, appropriate, very pleasant demeanor HEENT: Shows normocephalic, atraumatic. Extraocular movements are intact and symmetrical. Oral cavity: Mucous membranes moist and pink. Dentition is intact. NECK: Shows anterior throat supple without palpable lymphadenopathy noted. Swallow reflex symmetrical. CHEST: Shows normal on inspection. Breath sounds are clear bilaterally, no rales or rhonchi. HEART: Shows S1, S2 clear. No murmurs auscultated. ABDOMEN: Soft, nontender, nondistended. No palpable organomegaly is noted. No rebound or guarding demonstrated. BACK: Shows spine grossly in the midline. Normal-appearing cervical lordotic curvature. There is slightly increased thoracic kyphosis, some minor flattening of the lumbar lordotic curvature. Lumbar paraspinous muscles show symmetrical on inspection, on palpation shows some moderate tenderness diffusely throughout the upper, middle and lower distribution of the paraspinous muscles, but without specific trigger points, without radiation of pain. The patient has good rotat ional motion of the lumbar spine, both laterally as well as extension and flexion without significant difficulty. EXTREMITIES: Lower extremities show deep tendon reflexes 2 in the patellar and tendo calcaneus tendons. Motor exam is 5 on a scale of 5 with right dorsiflexion, extension, quadriceps and hamstring flexion and 5/5 on the left. Peripheral pulses are 1+ posterior tibial. No peripheral edema is noted bilaterally. Lower extremities are warm and dry to touch, equal in color and appearance. SKIN: Shows warm and dry, good turgor. No edema. No sores, rashes or bruising throughout. Procedure: Procedure: Options were discussed with patient. Patient's old chart was reviewed as her current medication regimen updated current review of systems updated today as well. We will proceed with a second in a series lumbar epidural steroid injection today with fluoroscopic guidance. Risks were discussed including but not limited to: Bleeding, infection, possibility of epidural hematoma and subsequent neurological compromise, dural puncture, headaches, spinal cord and/or nerve damage, side effects of steroid medication, and poor results regarding pain control. Patient understands and wished to proceed. Patient will return to the clinic in approximate 2 weeks for follow-up, was counseled as to return appointment activity level and side effects to be aware of. Medication Injected: Med Injected: Procedure is lumbar epidural steroid injection under local anesthetic using sterile prep and drape at the L5-S1 level using C-arm fluoroscopic guidance in both AP and lateral views medications injected is 120 mg Depo-Medrol +10mL preservative-free normal saline and 2 mL contrast- condition at discharge is sta ble patient tolerated procedure well had no complications. Condition at Discharge: Condition at Discharge: Condition at discharge is stable, patient already procedure well and had no complications. RUKHSANA COLIN MD March 31, 2021 09:05
== END | disposition home or self-care (01) ==
LOC: PNCL 08:05
PROVIDERS: ATTEND Anesthesiology
DX: M51.16 Intervertebral disc disorders with radiculopathy, lumbar region (principal); M47.26 Other spondylosis with radiculopathy, lumbar region; Z79.82 Long term (current) use of aspirin; Z79.84 Long term (current) use of oral hypoglycemic drugs; Z79.899 Other long term (current) drug therapy; Z88.0 Allergy status to penicillin; Z88.5 Allergy status to narcotic agent
CPT/HCPCS: 62323; J1030; J1040; Q9965

== ENCOUNTER → 2021-04-19 | Outpatient (CLI) | payer MEDICARE ==
[~2021-04-19] MED LIST changes: -IOHEXOL 180 MG/ML 10 ML VIAL. ONE; -methylPREDNISolone ACETATE 40 MG/ML VIAL. ONE; -methylPREDNISolone ACETATE 80 MG/ML VIAL. ONE
--- NOTE | 2021-04-19 14:06 | KCIC ---
INDICATION: Screening for osteopenia/osteoporosis. Postmenopausal evaluation. COMPARISON: None. TECHNIQUE: Bone densitometry was performed through the lumbar spine IMPRESSION: Lumbar Spine: BMD: 1.1 T-Score: 0.7 Range: Normal. Mild scoliotic curvature with degenerative changes. World Health Organization Criteria for Bone Density: T-Score: > -1.0: Normal Range < -1.0 to -2.5: Osteopenic Range < -2.5: Osteoporotic Range Electronically signed by: Marv Andino MD (04/19/2021 2:04 PM) [id number]
--- NOTE | 2021-04-19 14:09 | KCIC ---
INDICATION: Screening for osteopenia/osteoporosis. Postmenopausal evaluation. COMPARISON: None. TECHNIQUE: Bone densitometry was performed of the left forearm IMPRESSION: Left forearm: BMD: 0.47 T-Score: -1.9 Range: Osteopenic World Health Organization Criteria for Bone Density: T-Score: > -1.0: Normal Range < -1.0 to -2.5: Osteopenic Range < -2.5: Osteoporotic Range Electronically signed by: Marv Andino MD (04/19/2021 2:07 PM) [id number]
--- NOTE | 2021-04-19 18:16 | KCIC ---
BILATERAL SCREENING MAMMOGRAM, 3-D History: Routine screening. Comparison: Bilateral mammogram April 16, 2020 and prior years. Technique: MLO and CC digital tomosynthesis (3D) images obtained. Radiologist reviewed these images on dedicated workstation. Findings: Breast Tissue Density B : There are scattered areas of fibroglandular density. Arterial and nonarterial calcifications are redemonstrated. There are no dominant masses, suspicious microcalcifications or architectural distortion. IMPRESSION: No mammographic evidence of malignancy. Recommend routine screening. BI-RADS category 2: Benign findings. The images were reviewed with computer-aided detection. Patient information is entered into reminder system with a target due date [facility] the next [facility]. Mammography is the most sensitive method for finding small breast cancers, but it does not detect the m all and is not a substitute for careful clinical examination. A negative mammogram does not negate a clinically suspicious finding and should not result in delay in biopsying a clinically suspicious a bnormality. "Our facility is accredited by the [employer] Mammography Program." Electronically signed by: Feliz Klein MD (04/19/2021 6:14 PM) [email or web address]
== END ==
LOC: KCIC MAMMO 09:44
PROVIDERS: ATTEND Internal Medicine
DX: Z12.31 Encounter for screening mammogram for malignant neoplasm of breast (principal); N95.1 Menopausal and female climacteric states; M81.8 Other osteoporosis without current pathological fracture
CPT/HCPCS: 77063; 77067; 77080; 77081

== ENCOUNTER → 2021-07-08 | Outpatient (CLI) | payer MEDICARE ==
[~2021-07-08] MED LIST changes: +REGADENOSON 0.4 MG/5 ML DISP.SYRIN. IV ONE
--- NOTE | 2021-07-08 16:04 | RAD ---
MR#: [id number] Date of Study: 07/08/2021 Ordering Physician: HUA THURSTON, Referring Physician: JORGE GONZALEZ Tech: RT Kanwal Mcmullen) (N) APPROVED REPORT Test Type: Pharmacological Stress Nurse/Tech: Yolanda Arizmendi RN Test Indications: Hypertension and diabetes Cardiac History: Hypertension, Diabetes Medications: See Electronic Medical Record Medical History: See Electronic Medical Record Resting ECG: SR Resting Heart Rate: 64 bpm Resting Blood Pressure: 142/60mmHg Pretest Chest Pain: No chest pain Nurse/Tech Notes S1,S2 and lungs clear to auscultation. Consent: The procedure was explained to the patient in lay terms. Informed consent was witnessed. Brodie eout was entered into [email or web address]. History and Stress Test performed by RT Kanwal Coats) (N) Pharm. Details Pharmacologic stress testing was performed using 0.4mg per 5ml of regadenoson given intravenously ove r 7-10 seconds. Stress Symptoms Dizziness,headache,Nausea POST EXERCISE Reason for Termination: Infusion complete Target HR: No Max HR: 104 bpm 83% of Maximum Predicted HR: 125 bpm Max Blood Pressure: 147/55mmHg Blood Pressure response to exercise: Normal blood pressure response during stress. Heart Rate response to exercise: WNL Chest Pain: No. Arrhythmia: No. ST Change: Yes. non-diagnostic INTERPRETATION Stress EKG Conclusion: Baseline EKG showed sinus rhythm. Non-diagnostic changes at peak stress. No arrhythmias. Imaging Protocol IMAGE PROTOCOL: Rest Tc-99m/stress Tc-99m 1 day Rest: Stress: Viability: Radiopharm.Tc99m AzhtqxfosQj58a Sestamibi Wlnx32lQx 33mCi Duration 15min. 15min. Img Date 07/08/2021 07/08/2021 Inj-Img [id number]. 60min. Rest Admin Site:IV - Right AntecubitalAdministrator:RT Kanwal Coats)(N) Stress Admin Site: IV - Right AntecubitalAdministrator: SHABBIR Jennings STRESS DATA End Diast. Vol.54.0mlAv. Heart Rate81.0bpm End Syst. Vol.2.0mlCO Index BSA0.0L/min Myocardial Nsfz385.0gEject. Eqkvyiay34.0% Stress Rates Pk. Fill Rate3.36EDV/secLVtime Pk. Fill 110.13msec Pk. Empty Rate4.70ESV/secLVtime Pk. Ictck281.40msec 1/3 Pk. Fill2.05EDV/sec Stress Scores Regional WT0.00Summed WT1.00 Regional WM0.00Summed WM0.00 Study quality was good. Left Ventricular size was Normal at Rest and Stress. Lung uptake was . Left Ventricular ejection fraction is >80%. The rest and stress images show normal perfusion, normal contraction and thickening. LV Perf. Quant 17 Seg. SSS0.00 17 Seg. SRS1.00 17 Seg. SDS0.00 Stress Defect Extent (% LAD)0.00Rest Defect Extent (% LAD)0.00Rev. Defect Extent (% LAD)0.00 Stress Defect Extent (% LCX) 0.00Rest Defect Extent (% LCX)0.00Rev. Defect Extent (% LCX)0.00 Stress Defect Extent (% RCA)0.00Rest Defect Extent (% RCA)0.00Rev. Defect Extent (% RCA)0.00 Stress Defect Extent (% BRET)0.00Rest Defect Extent (% BRET)0.00Rev. Defect Extent (% BRET)0.00 Conclusion 1. Regadenoson cardioisotope stress test did not show any evidence of ischemia or infarct. 2. Normal left ventricular systolic function with ejection fraction calculated at >80%. 3. Low risk for cardiac events. Signed by : Akin Mackey, Electronically Approved : 07/08/2021 16:04:25
== END ==
LOC: NM 10:05
PROVIDERS: ATTEND Internal Medicine
DX: I10 Essential (primary) hypertension (principal); E11.8 Type 2 diabetes mellitus with unspecified complications; R11.0 Nausea; R42 Dizziness and giddiness; R51.9 Headache, unspecified
CPT/HCPCS: 78452; 93017; A9500; J2785

== ENCOUNTER → 2021-07-27 | Outpatient (CLI) | payer MEDICARE ==
[~2021-07-27] MED LIST changes: +IOHEXOL 180 MG/ML 10 ML VIAL. ONE; -REGADENOSON 0.4 MG/5 ML DISP.SYRIN. IV ONE; +methylPREDNISolone ACETATE 80 MG/ML VIAL. ONE
--- NOTE | 2021-07-27 13:39 | PDOC ---
Progress Note - Pain Clinic Date of Service: DOS: DATE: 07/27/21 TIME: 13:36 Diagnosis: Dx: Lumbar radiculopathy lumbar degenerative disease and lumbar spondylosis History or Present Illness: HPI: 70-year-old female returns for follow-up status post lumbar epidural steroid injection last seen March 31, 2021, patient reports she did very well about 90% improvement until about 1 month ago the pain began to return he is increasing some activity with the recent move to a new house and has had a lot of lifting bending and carrying items to rearrange furniture etc. patient reports the pain is increasing has a new pain in the left lower extremity now that was not present previously still much worse on the right but the left as well radiating bilaterally in the posterior gluteus posterior thigh on the right into the calf and on the left just in the thigh patient reports a 9 on scale 10 is worse over the past week 7 on average 6 its least is a 6 today patient ports better with sitting or laying down worse with walking standing stooping bending or changing positions. Patient reports she feels she is "overdone it" with the new activity with moving. Patient reports it does not generally wake her from sleep at night describes pain as tight and aching in the back radiating constant in the lower extremities again right and the left on exam today. Patient reports no bowel or bladder incontinence. Patient reports no loss of motor function but significant fatigability of both the lower extremities Physical Exam: VS: Blood pressure is 137/62 pulse 83 respirations 18 temperature 98.3 F height is 5 feet 5 inches weight 131 pounds PE: PHYSICAL EXAMINATION: GENERAL: The patient is awake, alert, oriented, appropriate, very pleasant in demeanor HEENT: Shows normocephalic, atraumatic. Extraocular movements are intact and symmetrical. Oral cavity: Mucous membranes moist and pink. Dentition is intact. NECK: Shows anterior throat supple without palpable lymphadenopathy noted. Swallow reflex symmetrical. CHEST: Shows normal on inspection. Breath sounds are clear bilaterally, distant but no rales or rhonchi. HEART: Shows S1, S2 clear. No murmurs auscultated. ABDOMEN: Soft, nontender, nondistended. No palpable organomegaly is noted. BACK: Shows spine grossly in the midline. Normal-appearing cervical lordotic curvature. There is slightly increased thoracic kyphosis, some minor flattening of the lumbar lordotic curvature. Lumbar paraspinous muscles show symmetrical on inspection, on palpation shows some moderate tenderness diffusely throughout the upper, middle and lower distribution of the paraspinous muscles without s pecific trigger points, without radiation of pain. The patient has good rotational motion of the lumbar spine, both laterally as well as extension and flexion without significant difficulty. EXTREMITIES: Lower extremities show deep tendon reflexes 2+ in the patellar and tendo calcaneus tendons. Motor exam is 5 on a scale of 5 with right dorsiflexion, extension, quadriceps and hamstring flexion and 5/5 on the left. Peripheral pulses are 1+ posterior tibial. No peripheral edema is noted bilaterally. Lower extremities are warm and dry to touch, equal in color and appearance. SKIN: Shows warm and dry, good turgor. No edema. No sores, rashes or bruising throughout. Procedure: Procedure: Options were discussed with the patient. Patient chart was reviewed as her current medication regimen updated current review of systems updated today as well. We will proceed with a lumbar epidural steroid injection today with fluoroscopic guidance. Risks were discussed including but not limited to: Bleeding, infection, possibility of epidural hematoma and subsequent neurological compromise, dural puncture, headaches, spinal cord and/or nerve damage, side effects of steroid medication, and poor results regarding pain control. Patient understands and wished to proceed. Patient will return to clinic in approximate 2 weeks for follow-up, was counseled as return luis ointment, activity, and side effect to be aware of. Medication Injected: Med Injected: Procedure is lumbar epidural steroid injection under local anesthetic using sterile prep and drape at the L5-S1 level using C-arm fluoroscopic guidance in both AP and lateral views medications injected is 120 mg Depo-Medrol +10mL preservative-free normal saline and 2 mL contrast- condition at discharge is stable patient tolerated procedure well had no complications. Condition at Discharge: Condition at Discharge: Condition at discharge is stable, patient already procedure well and no complications. RUKHSANA COLIN MD Jul 27, 2021 13:39
--- NOTE | 2021-07-27 13:39 | PDOC4 ---
Procedure Note: ICD 10 Code: ICD 10 Code: M54.17 M51.87 M4 7.817 Procedure Note: Patient was consented for lumbar epidural steroid injection with fluoroscopic guidance. Risks were discussed including but not limited to: Bleeding, infection, possibility of epidural hematoma and subsequent neurological compromise, dural puncture, headaches, spinal cord and/or nerve damage, side effects of steroid medication, and poor results regarding pain control. Patient understands and wished to proceed. Procedure is lumbar epidural steroid injection under local anesthetic using st erile prep and drape at the L5-S1 level using C-arm fluoroscopic guidance in both AP and lateral views medications injected is 120 mg Depo-Medrol +10mL preservative-free normal saline and 2 mL contrast- condition at discharge is stable patient tolerated procedure well had no complications. RUKHSANA COLIN MD Jul 27, 2021 13:39
== END | disposition home or self-care (01) ==
LOC: PNCL 13:08
PROVIDERS: ATTEND Anesthesiology
DX: M51.16 Intervertebral disc disorders with radiculopathy, lumbar region (principal); M47.26 Other spondylosis with radiculopathy, lumbar region; Z79.82 Long term (current) use of aspirin; Z79.899 Other long term (current) drug therapy; Z88.0 Allergy status to penicillin; Z88.5 Allergy status to narcotic agent
CPT/HCPCS: 62323; J1040; Q9965

== ENCOUNTER → 2021-10-07 | Outpatient (CLI) | payer MEDICARE ==
[~2021-10-07] MED LIST changes: -LISI-517 PO; +LISI5TAB15 PO; +OMEP40CA7 PO; +methylPREDNISolone ACETATE 40 MG/ML VIAL. ONE
--- NOTE | 2021-10-07 15:18 | PDOC ---
Progress Note - Pain Clinic Date of Service: DOS: DATE: 10/07/21 TIME: 15:16 Diagnosis: Dx: Lumbar radiculopathy with lumbar degenerative disease and lumbar spondylosis History or Present Illness: HPI: 71-year-old female returns for follow-up status post lumbar epidural steroid injections last seen July 27, 2021 patient did very well with approximately 90% improvement until about a week ago pain began to return in the low back and in the right lower extremity also some pain in the right knee which is problematic and seems to be associated with the low back pain and the way she is walking when her back is hurting patient reports it is radiating constant low back right lower extremity posterior gluteus posterior lateral thigh lateral anterior thigh anteromedial thigh medial lower leg as well as a tight sensation in the knee and the back itself patient reports no bowel or bladder incontinence no loss of motor function initially doing much better with distance walking doing household activities work activities try with greater ease and comfort sleeping much better at night still does well with laying down does not generally awaken her from sleep at night. Patient reports it is more noticeable now with standing and walking as well as sitting for prolonged periods greater than 1 hour. Patient reports no deficits. Physical Exam: VS: Blood pressure is 135/70 pulse 77 respirations 18 temperature 98.9 F height 5 feet 5 inches weight 134 pounds PE: PHYSICAL EXAMINATION: GENERAL: The patient is awake, alert, oriented, appropriate, very pleasant in demeanor HEENT: Shows normocephalic, atraumatic. Extraocular movements are intact and symmetrical. Oral cavity: Mucous membranes moist and pink. Dentition is intact. NECK: Shows anterior throat supple without palpable lymphadenopathy noted. Swallow reflex symmetrical. CHEST: Shows normal on inspection. Breath sounds are clear bilaterally, distant but no rales rhonchi wheezes auscultated. HEART: Shows S1, S2 clear. No murmurs auscultated. ABDOMEN: Soft, nontender, nondistended. No palpable organomegaly is noted. BACK: Shows spine grossly in the midline. Normal-appearing cervical lordotic curvature. There is slightly increased thoracic kyphosis, some flattening of the lumbar lordotic curvature. Lumbar paraspinous muscles show symmetrical on inspection, on palpation shows some moderate tenderness diffusely throughout the upper, middle and lower distribution of the paraspinous muscles without specific trigger points, without radiation of pain. The patient has good rotational motion of the lumbar spine, both laterally as well as extension and flexion wit hout significant difficulty. No tenderness over the spinous processes, sacrum or sacroiliac regions. EXTREMITIES: Lower extremities show deep tendon reflexes 2+ in the patellar and tendo calcaneus tendons. Motor exam is 5 on a scale of 5 with right dorsi flexion, extension, quadriceps and hamstring flexion and 5/5 on the left. Peripheral pulses are 1+ posterior tibial. No peripheral edema is noted bilaterally. Lower extremities are warm and dry. SKIN: Shows warm and dry, good turgor. No edema. No sores, rashes or bruising throughout. Procedure: Procedure: Options were discussed with patient. Patient's old chart was reviewed as her current medication regimen updated current review of systems updated today as well. We will proceed with a lumbar epidural steroid injection today with fluoroscopic guidance risks were discussed including but not limited to: Bleeding, infection, possibility of epidural hematoma and subsequent neurological compromise, dural puncture, headaches, spinal cord and/or nerve damage, side effects of steroid medication, and poor results regarding pain control. Patient understands and wished to proceed. Patient will return to the clinic in approximate 2 weeks for follow-up, was counseled as return luis ointment, activity level, and side effects to be aware of. Medication Injected: Med Injected: Procedure is lumbar epidural steroid injection under local anesthetic using sterile prep and drape at the L5-S1 level using C-arm fluoroscopic guidance in both AP and lateral views medications injected is 120 mg Depo-Medrol +10mL preservative-free normal saline and 2 mL contrast- condition at discharge is stable patient tolerated procedure well had no complications. Condition at Discharge: Condition at Discharge: Condition at discharge stable, paced tolerated procedure well and had no complications. RUKHSANA COLIN MD Oct 07, 2021 15:18
--- NOTE | 2021-10-07 15:19 | PDOC4 ---
Procedure Note: ICD 10 Code: ICD 10 Code: M54.16 M51.36 M54.816 Procedure Note: Patient was consented for lumbar epidural steroid injection with fluoroscopic guidance. Risks were discussed including but not limited to: Bleeding, infection, possibility of epidural hematoma and subsequent neurological compromise, dural puncture, headaches, spinal cord and/or nerve damage, side effects of steroid medication, and poor results regarding pain control. Patient understands and wished to proceed. Procedure is lumbar epidural steroid injection under local anesthetic using christina rile prep and drape at the L5-S1 level using C-arm fluoroscopic guidance in both AP and lateral views medications injected is 120 mg Depo-Medrol +10mL preservative-free normal saline and 2 mL contrast- condition at discharge is stable patient tolerated procedure well had no complications. RUKHSANA COLIN MD Oct 07, 2021 15:19
== END | disposition home or self-care (01) ==
LOC: PNCL 14:32
PROVIDERS: ATTEND Anesthesiology
DX: M51.16 Intervertebral disc disorders with radiculopathy, lumbar region (principal); M47.26 Other spondylosis with radiculopathy, lumbar region; Z79.82 Long term (current) use of aspirin; Z79.84 Long term (current) use of oral hypoglycemic drugs; Z79.899 Other long term (current) drug therapy; Z88.0 Allergy status to penicillin; Z88.5 Allergy status to narcotic agent
CPT/HCPCS: 62323; J1030; J1040; Q9965

== ENCOUNTER → 2021-12-03 | Outpatient (CLI) | payer MEDICARE ==
[~2021-12-03] MED LIST changes: -methylPREDNISolone ACETATE 40 MG/ML VIAL. ONE
--- NOTE | 2021-12-03 10:10 | PDOC ---
Progress Note - Pain Clinic Date of Service: DOS: DATE: 12/03/21 TIME: 10:05 Diagnosis: Dx: Lumbar radiculopathy with lumbar degenerative disease and lumbar spondylosis Osteoarthritis of the knees History or Present Illness: HPI: 71-year-old female returns for follow-up status post lumbar epidural steroid injection last seen October 07, 2021 patient did very well with about 80% improvement in the pain in her low back and right lower extremity patient reports she is having some new pain on the left side in the posterior gluteus lateral thigh anterior thigh also on the right as it was previously is returning now over the past week or so patient reports prior to that she was doing much better increase activity walking doing household activities travel with greater ease and comfort and mostly walking with much more comfort and distance patient reports still better with sitting or laying down has complained of her right knee with some significant pain in the knee itself with weightbearing only and also pain now in the left leg where previously it was fairly well localized to the right. Patient rates her pain a 9 on scale 10 is worst average and a 6 at its least over the past week and is an 8 today patient reports aching and tight can be radiating constant with walking and weightbearing again returning in the right leg and also down the left leg but with significant pain with the right knee with standing walking put all of her weight on 1 leg such as stairs or steps as well. Patient reports a long history of osteoarthritis of the knee as well and is currently only taking Tylenol for this. We discussed this further and will add meloxicam 15 mg once daily precaution patient has no side effects to be aware of as well as instructions for the medications especially to watch her blood sugars as she is type II diabetic with the anti-inflammatory combined and patient reports she is having full lab work done with her primary physician at least once yearly including kidney functions as well, and we impressed the importance of maintaining this with her primary physician as scheduled. Physical Exam: VS: Blood pressure is 144/74 pulse 78 respirations are 16 temperature 98.2 F height is 5 foot 4 inches weight is 134 pounds. PE: PHYSICAL EXAMINATION: GENERAL: The patient is awake, alert, oriented, appropriate, very pleasant in demeanor HEENT: Shows normocephalic, atraumatic. Extraocular movements are intact and symmetrical. Oral cavity: Mucous membranes moist and pink. NECK: Shows anterior throat supple without palpable lymphadenopathy noted. Swallow reflex symmetrical. CHEST: Shows normal on inspection. Breath sounds are clear bilaterally, no rales or rhonchi. HEART: Shows S1, S2 clear. No murmurs auscultated. ABDOMEN: Soft, nontender, nondistended. No palpable organomegaly is noted. BACK: Shows spine grossly in the midline. Normal-appearing cervical lordotic curvature. There is mildly increased thoracic kyphosis, some flattening of the lumbar lordotic curvature. Lumbar paraspinous muscles show symmetrical on inspection, on palpation shows some moderate tenderness diffusely throughout the upper, middle and lower distribution of the paraspinous muscles without specific trigger points, without radiation of pain. The patient has good rotational motion of the lumbar spine, both laterally as well as extension and flexion without significant difficulty. No tenderness over the spinous processes, sacrum or sacroiliac regions. EXTREMITIES: Lower extremities show deep tendon reflexes 2+ in the patellar and tendo calcaneus tendons. Motor exam is 4 on a scale of 5 with right dorsiflexion, extension, quadriceps and hamstring flexion and 5/5 on the left. Peripheral pulses are 1+ posterior tibial. No peripheral edema is noted bilaterally. Patient's right knee shows some moderate tenderness with palpation over the medial aspect of the collateral ligament but without radiation shows good hinge motion however without ratcheting without crepitus. Lower extremities are warm and dry to touch, equal in color and appearance. SKIN: Shows warm and dry, good turgor. No edema. No sores, rashes or bruising throughout. Procedure: Procedure: Options were discussed with the patient. Patient's old chart was reviewed as her current medication regimen updated current review of systems updated today as well. We will proceed with a lumbar epidural steroid injection today with fluoroscopic guidance. Risks were discussed including but not limited to: Bleeding, infection, possibility of epidural hematoma and subsequent neurological compromise, dural puncture, headaches, spinal cord and/or nerve damage, side effects of steroid medication, and poor results regarding pain control. Patient understands and wished to proceed. Patient will return to clinic in approximately 2 weeks for follow-up, was counseled as to return appointment, activity level, and side effect to be aware of. Medication Injected: Med Injected: Procedure is lumbar epidural steroid injection under local anesthetic using sterile prep and drape at the L5-S1 level using C-arm fluoroscopic guidance in both AP and lateral views medications injected is 120 mg Depo-Medrol +10mL preservative-free normal saline and 2 mL contrast- condition at discharge is stable patient tolerated procedure well had no complications. Condition at Discharge: Condition at Discharge: Condition at discharge is stable, patient tolerated the procedure well and had no complications. RUKHSANA COLIN MD Dec 03, 2021 10:10
--- NOTE | 2021-12-03 10:11 | PDOC4 ---
Procedure Note: ICD 10 Code: ICD 10 Code: M54.16 M51.36 7.816 Procedure Note: Patient was consented for lumbar epidural steroid injection with fluoroscopic guidance. Risks were discussed including but not limited to: Bleeding, infection, possibility of epidural hematoma and subsequent neurological compromise, dural puncture, headaches, spinal cord and/or nerve damage, side effects of steroid medication, and poor results regarding pain control. Patient understands and wished to proceed. Procedure is lumbar epidural steroid injection under local anesthetic using st erile prep and drape at the L5-S1 level using C-arm fluoroscopic guidance in both AP and lateral views medications injected is 120 mg Depo-Medrol +10mL preservative-free normal saline and 2 mL contrast- condition at discharge is stable patient tolerated procedure well had no complications. RUKHSANA COLIN MD Dec 03, 2021 10:10
== END | disposition home or self-care (01) ==
LOC: PNCL 09:32
PROVIDERS: ATTEND Anesthesiology
DX: M51.16 Intervertebral disc disorders with radiculopathy, lumbar region (principal); M47.26 Other spondylosis with radiculopathy, lumbar region; M17.0 Bilateral primary osteoarthritis of knee; Z79.82 Long term (current) use of aspirin; Z79.899 Other long term (current) drug therapy; Z88.0 Allergy status to penicillin; Z88.5 Allergy status to narcotic agent
CPT/HCPCS: 62323; J1040; Q9965

== ENCOUNTER → 2022-02-01 | Outpatient (CLI) | payer MEDICARE ==
[~2022-02-01] MED LIST changes: +DEXAMETHASONE PRES.FREE 10 MG/ML VIAL. ONE; -methylPREDNISolone ACETATE 80 MG/ML VIAL. ONE
--- NOTE | 2022-02-01 10:10 | PDOC ---
Progress Note - Pain Clinic Date of Service: DOS: DATE: 02/01/22 TIME: 10:07 Diagnosis: Dx: Lumbar radiculopathy with lumbar degenerative disc disease and lumbar spondylosis History or Present Illness: HPI: 31-year-old female returns for follow-up status post lumbar epidural steroid injection last seen 01/23/2022. Patient about 80% improvement in the low back and right lower extremity pain patient reports some pain on the left lower extremity as well as the right which is new for her with the pain increasing in the posterior gluteus and posterior thigh is a burning sensation on the right side however in the gluteus and thigh but only a dull aching pain on the left side patient reports she generally has not had pain on the left side but this is, over the past few weeks without result of any specific injury or accident. Patient has been exercising daily doing stationary bike which is been more tolerable but has difficulty with walking which normally she performed very well and enjoys doing but has not been able to go nearly as far as she has in the past secondary to the pain in the right and now left lower extremities patient reports a stationary bike does well with this also her primary care had tried her with tramadol which did not decrease the pain by her report. Patient was started on meloxicam and is only taking it very sparingly as she is diabetic but it does help the pain by about 40% by her report. Patient reports no bowel or bladder incontinence no new deficits but significant fatigability in the bilateral lower extremities patient reports it does awaken her from sleep occasionally but not most nights. Physical Exam: VS: Blood pressure is 1 4477 pulse 77 respirations 16 temperature 98.3 F height is 5 foot 5 inches weight is 134 pounds. PE: PHYSICAL EXAMINATION: GENERAL: The patient is awake, alert, oriented, appropriate, very pleasant in demeanor HEENT: Shows normocephalic, atraumatic. Extraocular movements are intact and symmetrical. Oral cavity: Mucous membranes moist and pink. Dentition is intact. NECK: Shows anterior throat supple without palpable lymphadenopathy noted. Swallow reflex symmetrical. CHEST: Shows normal on inspection. Breath sounds are clear bilaterally, no rales or rhonchi auscultated. HEART: Shows S1, S2 clear. No murmurs auscultated. ABDOMEN: Soft, nontender, nondistended. No palpable organomegaly is noted. BACK: Shows spine grossly in the midline. Normal-appearing cervical lordotic curvature. There is mildly increased thoracic kyphosis, some flattening of the lumbar lordotic curvature. Lumbar paraspinous muscles show symmetrical on inspection, on palpation shows some moderate tenderness diffusely throughout the upper, middle and lower distribution of the paraspinous muscles, but without specific trigger points, without radiation of pain. The patient has good rotational motion of the lumbar spine, both laterally as well as extension and flexion without significant difficulty. EXTREMITIES: Lower extremities show deep tendon reflexes 2+ in the patellar and tendo calcaneus tendons. Motor exam is 4 on a scale of 5 with right dorsiflexion, extension, quadriceps and hamstring flexion and 5/5 on the left. Peripheral pulses are 1+ posterior tibial. No peripheral edema is noted bilaterally. Lower extremities are warm and dry to touch, equal in color and appearance. SKIN: Shows warm and dry, good turgor. No edema. No sores, rashes or bruising throughout. Procedure: Procedure: Options were discussed with the patient. Patient's old heart was viewed as her current medication regimen updated current review of systems updated today as well. We will proceed with a lumbar epidural steroid injection today with fluoroscopic guidance. Risks were discussed including but not limited to: Bleeding, infection, possibility of epidural hematoma and subsequent neurological compromise, dural puncture, headaches, spinal cord and/or nerve damage, side effects of steroid medication, and poor results regarding pain control. Patient understands and wished to proceed. Patient will return to the clinic in approximately 3 weeks for follow-up, was counseled as to return appointment, activity level, and side effect to be aware of. Medication Injected: Med Injected: Procedure is lumbar epidural steroid injection under local anesthetic using sterile prep and drape at the L5-S1 level using C-arm fluoroscopic guidance in both AP and lateral views medications injected is 20 mg dexamethasone +10mL preservative-free normal saline and 2 mL contrast- condition at discharge is stable patient tolerated procedure well had no complications. Condition at Discharge: Condition at Discharge: Condition at discharge stable, patient tolerated procedure well had no complications. RUKHSANA COLIN MD Feb 01, 2022 10:10
--- NOTE | 2022-02-01 10:11 | PDOC4 ---
Procedure Note: ICD 10 Code: ICD 10 Code: M54.16 M51.36 7.816 Procedure Note: Patient was consented for lumbar epidural steroid injection with fluoroscopic guidance. Risks were discussed including but not limited to: Bleeding, infection, possibility of epidural hematoma and subsequent neurological compromise, dural puncture, headaches, spinal cord and/or nerve damage, side effects of steroid medication, and poor results regarding pain control. Patient understands and wished to proceed. Procedure is lumbar epidural steroid injection under local anesthetic using st erile prep and drape at the L5-S1 level using C-arm fluoroscopic guidance in both AP and lateral views medications injected is 20 mg dexamethasone +10mL preservative-free normal saline and 2 mL contrast- condition at discharge is stable patient tolerated procedure well had no complications. RUKHSANA COLIN MD Feb 01, 2022 10:11
== END | disposition home or self-care (01) ==
LOC: PNCL 09:10
PROVIDERS: ATTEND Anesthesiology
DX: M51.16 Intervertebral disc disorders with radiculopathy, lumbar region (principal); M47.26 Other spondylosis with radiculopathy, lumbar region; Z79.84 Long term (current) use of oral hypoglycemic drugs; Z79.899 Other long term (current) drug therapy; Z88.0 Allergy status to penicillin; Z88.5 Allergy status to narcotic agent
CPT/HCPCS: 62323; J1100; Q9965